=== PATIENT | female | born 1995 | race Caucasian/White ===

== ENCOUNTER 2018-01-31 23:28 | Emergency (ER) | payer MEDICAID, SELFPAY ==
[2018-01-31 23:29] VITALS: BP 140/96; PULSE 104; RESP 18; TEMP 36.8; O2SAT 100; BMI 41.6
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
[2018-02-01 00:38] VITALS: PULSE 80; RESP 18; O2SAT 99
[2018-02-01] MEDS: Acetaminophen 500 MG Tablet 1000 MG PO (00:38)
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
[2018-02-01] MEDS: HYDROcodone Bitartrate/Apap 5/325 Tablet PO (01:38)
[2018-02-01 01:39] VITALS: BP 109/71; PULSE 87; O2SAT 100
== END 2018-02-01 01:39 | disposition home or self-care (01) ==
PROVIDERS: Emergency Provider Emergency Medicine; Family Provider Family Medicine; PCP Family Medicine
DX: S16.1XXA Strain of muscle, fascia and tendon at neck level, initial encounter (principal); S39.012A Strain of muscle, fascia and tendon of lower back, initial encounter; S70.01XA Contusion of right hip, initial encounter; F17.290 Nicotine dependence, other tobacco product, uncomplicated; V43.52XA Car driver injured in collision with other type car in traffic accident, initial encounter; Y93.I9 Activity, other involving external motion; Y92.410 Unspecified street and highway as the place of occurrence of the external cause; Y99.8 Other external cause status
CPT/HCPCS: 72040; 72100; 72170; 73552; 99284

== ENCOUNTER → 2019-05-06 | Outpatient (CLI) | payer MEDICAID, SELFPAY ==
[2019-05-06 13:27] LABS: D-Dimer Quantitative (DVT/PE) < 0.27 FEU/ug/m (0.27-0.49)
== END | disposition home or self-care (01) ==
LOC: LABSPEC 12:58
PROVIDERS: PCP Family Medicine; Visit Provider Family Medicine
DX: R07.9 Chest pain, unspecified (principal)
CPT/HCPCS: 85379

== ENCOUNTER 2020-06-20 15:31 | Emergency (ER) | payer MEDICAID, SELFPAY ==
[2020-06-20 15:32] VITALS: BP 132/88; PULSE 92; RESP 18; TEMP 36.4; O2SAT 100; BMI 39.2
[2020-06-20 16:03] LABS: Mucous, Urine 0 SEEN /hpf (<or=2+); Red Blood Cells-Urine 0 SEEN /hpf (0-5)
[2020-06-20 16:16] LABS: Absolute Lymphocyte Count 2.15 X10^3/uL (0.83-4.51); Absolute Neutrophil Count 4.6 X10^3/uL (2.0-7.7); Basophil# 0.05 X10^3/uL; Basophil% 0.6 % (0-1); Eosinophil# 0.31 X10^3/uL; Hematocrit 37.7 % (37-47); Hemoglobin 12.7 g/dL (12.0-15.0); Lymphocyte # 2.15 X10^3/ul (4.0); Lymphocyte % 27.9 % (19-41); Mean Corp Hgb Conc 33.7 g/dL (32-36); Mean Corpuscular Hgb 27.8 pg (27.0-32.0); Mean Corpuscular Volume 82.5 fL (81-99); Mean Platelet Vol. 11.1 fl (6.2-12.0); Monocyte# 0.56 X10^3/uL; Monocyte% 7.3 % (0-10); NRBC Flagged by Analyzer 0 % (0-5); Neutrophil % 59.8 % (47-70); Platelet Count 235 K/mm3 (150-450); RBC Distribution Width CV 12.6 % (11.6-14.6); RBC Distribution Width SD 37.7 fl (35.1-43.9); Red Blood Count 4.57 M/mm3 (4.2-5.4); White Blood Count 7.7 K/mm3 (4.4-11.0)
[2020-06-20 16:30] LABS: Anion Gap 6 (5-15); BUN 10 mg/dL (7-18); BUN/Creat Ratio 17.8 RATIO (10-20); Calcium,Total 9.1 mg/dL (8.5-10.1); Chloride 103 mmol/L (98-107); Creatinine, Serum 0.56 mg/dL (0.55-1.02); EST Glomerular Filtration Rate 138 mL/min (>60); Est Glom Filt Rate - Afr Amer 167 mL/min (>60); Estimated Creatinine Clearance 125.93 ml/min; Glucose 95 mg/dL (74-106); Potassium 4.2 mmol/L (3.5-5.1); Sodium Level 136 mmol/L (136-145)
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
[2020-06-20] MEDS: Acetaminophen 500 MG Tablet 1000 MG PO (16:40)
[2020-06-20 16:41] LABS: Internal QC Validated? YES +Cl - CLEAR BKGD; Pregnancy, Serum, hCG Quali. POSITIVE Negative
[2020-06-20 16:53] LABS: Color, Urine Yellow (Yellow); Glucose, Dipstick Normal (Normal); Ketone-Dipstick Negative (Negative); Leukocyte Esterase-Dipstick 25 /ul (Negative); Nitrite-Dipstick Negative (Negative); Occult Blood-Urine Negative /ul (Negative); Protein-Dipstick Negative (Negative); Urine Bilirubin Dipstick Negative (Negative); Urine Clarity Clear (Clear); Urine Urobilinogen Normal (Normal); Urine pH 6.5 (5.0 - 8.0)
[2020-06-20 17:05] LABS: AST(SGOT) 19 U/L (15-37); Alanine Aminotransfer ALT/SGPT 20 U/L (13-56); Albumin, Serum 3.8 g/dL (3.2-5.0); Alkaline Phosphatase 64 U/L (45-117); Bilirubin, Direct 0.08 mg/dL (0.00-0.30); Globulin 3.6 g/dL (2.2-4.2); Protein, Total 7.4 g/dL (6.4-8.2)
[2020-06-20 17:17] LABS: Bacteria 1+ /hpf (None Seen); Squamous Epithelial Cells - UA 0-5 SEEN /hpf (5-10); White Blood Cells 0-5 SEEN /hpf (0-5)
[2020-06-20 18:43] VITALS: BP 131/67; PULSE 72; RESP 15; O2SAT 99
== END 2020-06-20 18:44 | disposition home or self-care (01) ==
PROVIDERS: Emergency Provider Emergency Medicine; PCP Family Medicine
DX: O20.0 Threatened abortion (principal); O26.891 Other specified pregnancy related conditions, first trimester; R10.2 Pelvic and perineal pain; Z3A.01 Less than 8 weeks gestation of pregnancy; Z87.891 Personal history of nicotine dependence
CPT/HCPCS: 76817; 80048; 80076; 81001; 84702; 84703; 85025; 86900; 86901; 87086; 99282; A4216

== ENCOUNTER 2023-05-14 11:21 | Emergency (ER) | payer MEDICAID, SELFPAY ==
[2023-05-14 11:22] VITALS: BP 128/86; PULSE 81; RESP 14; TEMP 36.4; O2SAT 97; BMI 38.6
--- NOTE | 2023-05-14 11:39 | EKG12_ITS ---
Test Reason : GENERAL Blood Pressure : / mmHG Vent. Rate : 075 BPM Atrial Rate : 075 BPM P-R Int : 168 ms QRS Dur : 094 ms QT Int : 400 ms P-R-T Axes : 046 036 016 degrees QTc Int : 446 ms Normal sinus rhythm Normal ECG Confirmed by DEBBI TEIXEIRA, WALDEMAR ([id number]), editorial writer FERNANDEZ CLAY ([id number]) on 05/18/2023 8:25:31 AM Referred By: Confirmed By:BEBA WERNER MD
--- NOTE | 2023-05-14 11:53 | RAD_ITS ---
STUDY: X-RAY CHEST REASON FOR EXAM: Female, 28 years old. Chest pain TECHNIQUE: Single AP portable view of the chest. COMPARISON: None. FINDINGS: EKG electrodes are seen. The lungs are clear and expanded. There is no demonstrated pleural abnormality. Normal size heart. Normal mediastinum and marcella. Normal visualized pulmonary arteries. Normal visualized aortic arch and descending thoracic aorta. Normal visualized thoracic spine. Normal visualized ribs, clavicles, and shoulders. There is no demonstrated abnormality of the visualized soft tissue structures of the upper abdomen. RAD/Chest 1 View (Portable) IMPRESSION: Normal x-ray examination of the chest. Electronically Signed: Arya Grissom MD at 12:10 EDT ,
[2023-05-14 11:57] LABS: Absolute Neutrophil Count 3.4 X10^3/uL (2.0-7.7); Basophil# 0.04 X10^3/uL; Basophil% 0.6 % (0-1); Eosinophil# 0.27 X10^3/uL; Eosinophils% 3.9 % (0-5); Hematocrit 37.4 % (37-47); Hemoglobin 12.8 g/dL (12.0-15.0); Lymphocyte % 37.7 % (19-41); Mean Corp Hgb Conc 34.2 g/dL (32-36); Mean Corpuscular Hgb 27.7 pg (27.0-32.0); Mean Platelet Vol. 11.5 fl (6.2-12.0); Monocyte# 0.55 X10^3/uL; NRBC Flagged by Analyzer 0 % (0-5); Neutrophil # 3.42 X10^3/uL (2.7-7.7); Neutrophil % 49.5 % (47-70); POSITIVE MORPHOLOGY YES; Platelet Count 234 K/mm3 (150-450); RBC Distribution Width CV 13.1 % (11.6-14.6); RBC Distribution Width SD 37.9 fl (35.1-43.9); Red Blood Count 4.62 M/mm3 (4.2-5.4); White Blood Count 6.9 K/mm3 (4.4-11.0)
[2023-05-14 11:58] LABS: Differential Indicated SCAN CRITERIA MET
--- NOTE | 2023-05-14 12:11 | EDS_ITS ---
HPI History of Present Illness Chief Complaint: Chest Pain Narrative Narrative: 8-year-old female presenting with chest pain. She states intermittent. She had a couple episodes where it felt like if there was something retrosternal. She had some shortness of breath as well. Patient reports she has a stomach flu last week. She states her whole family had it. She states he recovered from this. No fevers or chills. No nausea or vomiting. No diarrhea. Patient went to her primary care physician to be evaluated had EKG which was normal and she was sent to the ED because she apparently has heart disease that runs in her family. No DVT/PE risk factors. PE Risk Factors: Negative for Recent Travel/Surgery, Recent Immobilization, Prior DVT or PE, Cancer or OCP + Smoking + >/=35 PFSH PFSH Home Medications loratadine 10 mg tablet 10 mg PO DAILY 06/20/20 [History Last Taken Unknown] vit no.95-ferrous fumarate 28 mg-folic acid 800 mcg tablet 1 ea PO PAIGE LY #30 tabs 06/20/20 [Rx Last Taken Unknown] Allergy/AdvReac Type Severity Reaction Status Date / Time gluten Allergy Unknown Verified 05/14/23 11:23 Social History Smoking Status: Former smoker ROS ROS ED Review of Systems ROS Unobtainable: Denies due to encephalopathy Constitutional Constitutional ED: Denies chills or fever(s) Eyes Eyes: Denies none ENT ENT ED: Denies ear pain or rhinorrhea Cardiovascular Cardiovascular: Reports as per HPI Respiratory/Chest Respiratory/Chest: Reports dyspnea Gastrointestinal Gastrointestinal: Denies abdominal pain, nausea or vomiting Genitourinary Genitourinary ED: Denies dysuria or hematuria Musculoskeletal Musculoskeletal: Denies arthralgias Integumentary Denies abscess or Abrasions Neurologic Neurologic: Denies headache(s) or paresthesias Psychiatric Psychiatric: Denies anxiety or depression EXAM Physical Exam Const Vital Signs: 05/14/23 11:22 05/14/23 11:39 05/14/23 11:39 Temperature 97.6 F L Temperature Source Temporal Pulse Rate 81 Respiratory Rate 14 Respiratory Effort Normal Non-Labored Blood Pressure 128/86 H Blood Pressure Mean 100 Pulse Ox 97 Oxygen Delivery Method Room Air Room Air 05/14/23 13:21 Temperature Temperature Source Pulse Rate 73 Respiratory Rate 17 Respiratory Effort Blood Pressure 115/69 Blood Pressure Mean 84 Pulse Ox 95 Oxygen Delivery Method Room Air Positive well nourished General Appearance ED: NAD FRANKLYN Reports moist mucous membranes normocephalic and atraumatic Eyes PERRL and EOMs intact bilaterally Chest Wall inspection of chest normal and palpation of chest normal Resp normal respiratory effort and clear to auscultation bilaterally Auscultation: Negative for rales, rhonchi or wheezes Cardio regular rate and regular rhythm Extremity normal to inspection General Extremety ED: Yes pulses abnormal; Negative for edema General Extremity: pulses abnormal; Negative for edema Neuro oriented x3 and CN's II-XII intact bilaterally Motor Exam: strength 5/5 throughout Psych mental status grossly normal Skin no rashes or lesions noted and no wounds Heart Score History: Slightly/Non-Suspicious ECG: Normal Age: </= 45 years Risk Factors: 1 or 2 Risk Factors Troponin: </= Normal Limit Score: 1 MDM MDM MDM Narrative Medical decision making narrative: Patient presenting with intermittent chest pains. HEART score of 1. This is for family history. Patient has no other medical problems. Differential includes acute coronary syndrome, pneumonia, viral syndrome, pneumothorax, dehydration, electrolyte abnormalities. CBC obtained to assess white blood cell count, hemoglobin and platelets, BMP to assess renal function, electrolytes. D- dimer to assess for PE. High-sensitivity troponin will be obtained as well as EKG to rule out ischemia. Chest x-ray to rule out pneumonia or pneumothorax. Patient declines analgesia. CBC and BMP are unremarkable with exception of a potassium of 3.2. Renal function is normal. Chest x-ray my interpretation shows no acute process. Radiologist interprets this and agrees. EKG is normal sinus rhythm with a ventricular rate of 82 bpm without sign of ischemic change or ectopy on my interpretation. Troponin is 3 and delta troponin is 4 therefore there is no significant will change. I believe the patient is safe for discharge at this time. Impression: 1. Chest pain Lab Data Attestation: I reviewed the patient's lab results. Labs: Laboratory Results - last 24 hr 05/14/23 05/14/23 11:49 14:00 WBC 6.9 RBC 4.62 Hgb 12.8 Hct 37.4 MCV 81.0 MCH 27.7 MCHC 34.2 RDW Std Deviation 37.9 RDW Coeff of Shan 13.1 Plt Count 234 MPV 11.5 Immature Gran % (Auto) 0.300 Neut % (Auto) 49.5 Lymph % (Auto) 37.7 [place] % (Auto) 8.0 Eos % (Auto) 3.9 Baso % (Auto) 0.6 Absolute Neuts (auto) 3.4 Absolute Lymphs (auto) 2.60 Nucleated RBC % 0 Reactive Lymphocytes 1+ D-Dimer Quant (PE/DVT) 0.45 Sodium 141 Potassium 3.2 L Chloride 110 H Carbon Dioxide 27.0 Anion Gap 4 L BUN 7 Creatinine 0.71 Estim Creat Clear Calc 96.71 Est GFR (MDRD) Af Amer 126 Est GFR (MDRD) Non-Af 104 BUN/Creatinine Ratio 9.9 L Glucose 108 H Calcium 8.7 Troponin I High Sens 3 4 Radiography Diagnostic Testing: Clinical Impression(s) from Imaging Studies Chest X-Ray 05/14/23 11:53 IMPRESSION: Normal x-ray examination of the chest. Electronically Signed: Arya Grissom MD at 12:10 EDT , Discharge Plan Triage Chief Complaint: Chest Pain ED Provider: Kiran Lobo Dx/Rx/DC Orders Instructions: ED Chest Pain, Noncardiac, ED Dyspnea Prescriptions: No Action loratadine 10 MG tablet 10 mg PO DAILY PNV cmb#95-ferrous fumarate-FA 1 EACH tablet 1 ea PO DAILY Qty: 30 0RF Primary Care Provider: Obie Snow Referrals: Obie Snow MD [Primary Care Provider] - Disposition Disposition: Home, Self Care Discharge Date/Time: 05/14/23 14:43
[2023-05-14 12:15] LABS: Anion Gap 4 (5-15); BUN 7 mg/dL (7-18); BUN/Creat Ratio 9.9 RATIO (10-20); Calcium,Total 8.7 mg/dL (8.5-10.1); Chloride 110 mmol/L (98-107); Creatinine, Serum 0.71 mg/dL (0.55-1.02); EST Glomerular Filtration Rate 104 mL/min (>60); Est Glom Filt Rate - Afr Amer 126 mL/min (>60); Estimated Creatinine Clearance 96.71 ml/min; Glucose 108 mg/dL (74-106); Potassium 3.2 mmol/L (3.5-5.1); Sodium Level 141 mmol/L (136-145); Troponin-I HS (w/2H Reflex) 3 pg/mL (3.0-54.0)
[2023-05-14] MEDS: Aspirin 81 MG TAB.CHEW 324 MG PO (12:19)
[2023-05-14 12:22] LABS: Reactive Lymphocyte 1+
[2023-05-14 12:51] LABS: D-Dimer Quantitative (DVT/PE) 0.45 FEU/ug/m (0.27-0.49)
[2023-05-14 13:21] VITALS: BP 115/69; PULSE 73; RESP 17; O2SAT 95
[2023-05-14 13:53] LABS: Reflex Troponin-HS? (from REC) Y
[2023-05-14 14:25] LABS: Troponin-I HS 4 pg/mL (3.0-54.0)
== END 2023-05-14 14:43 | disposition home or self-care (01) ==
PROVIDERS: Emergency Provider Student in an Organized Health Care Education/Training Program; PCP Family Medicine; Visit Provider Student in an Organized Health Care Education/Training Program
DX: R07.9 Chest pain, unspecified (principal); Z87.891 Personal history of nicotine dependence; Z82.49 Family history of ischemic heart disease and other diseases of the circulatory system; R06.02 Shortness of breath
CPT/HCPCS: 71045; 80048; 84484; 85025; 85379; 93005; 99285; A4216

== ENCOUNTER 2024-04-20 11:00 | Outpatient (RCR) | payer MEDICAID, SELFPAY ==
--- NOTE | 2024-03-23 09:32 | HP.PTEVAL_ITS ---
Patient's Visit Information Visit Information Visit Information: EDNA WIGGINS is a 28 year old F referred to Physical Therapy by BINA Sheffield with a diagnosis of CERVICAL STRAIN. Date of Evaluation: 03/23/24 Physical Therapist: Salvatore Tidwell, PT, Cert MDT, OCS Visit Plan Frequency: 2x /Week Duration: 4 Weeks Plan: PT INTERVENTION POSTURAL EX'S ,[place] EX'S ,STRENGTHENING AND MANUAL THERAPY/SRM CERVICAL TRACTION Subjective Subjective: This 28 y/o female presents to physical therapy with cervical strain. Patient has neck pain for many years. Recently has had symptoms spasms in arm and radiates in cervical on right. Seen DR blanco ENG to r/o seizures . Plan to see Neurologist April 29. muscle relaxers. Aggravating factors not specific. Alleviating factors rest. Denies paresthesia/tingling . Patient c/o frontal and orbital SEE.Denies dizziness/tinnitus/nausea. Patient has difficulty sleeping. Patient has no h/o trauma or accidents. Patient condition affects QOL and function. SOCIAL: single 5 CHILDREN VOCATION: HOME Pain Bilateral Neck: Pain Intensity (Out of 10): 3 Pain Intensity Range: 10 Objective Objective: POSTURE: rounded shoulders head forward PALAPTION: tender UT/levator NEURO: denies paresthesia/tingling ,reflexes C5-6-7 2/3 AROM: shoulder flexion /abduction WNL ,ER 90 degrees ,IR T11 MMT: grossly 4/5 except shoulders 4-/5 CERVICAL ROM: flexion WFL, rotation min loss ,lateral flexion min loss ,extension min loss Special Tests C/S Radiculapathy - Left Upper limb tension test: Negative C/S Radiculapathy - Right Upper limb tension test: Negative C/S Radiculapathy - Left Spurlings: Negative C/S Radiculapathy - Right Spurlings: Negative C/S Radiculapathy - Left Cervical distraction: Negative C/S Radiculapathy - Right Cervical distraction: Negative C/S Radiculapathy - Left Relief test: Negative C/S Radiculapathy - Right Relief test: Negative C/S Radiculapathy - Valsalva: Negative Sharp Danielle: Negative Vertebral Artery Test: Negative Alar Ligament Test: Negative Cervical Sitting: Protrusion - Mechanical Response: No effect Cervical Sitting: Protrusion - Symptoms During Testing: Increases Cervical Sitting: Protrusion - Symptoms After Testing: No worse Cervical Sitting: Retraction - Mechanical Response: No effect Cervical Sitting: Retraction - Symptoms During Testing: Decreases Cervical Sitting: Retraction - Symptoms After Testing: No better Cervical Sitting: Retraction-Extension - Mechanical Response: No effect Cerv Sitting: Retraction-Extension - Symptoms During Testing: Decreases Cerv Sitting: Retraction-Extension - Symptoms After Testing: No better Cervical Sitting: Sidebend Right - Mechanical Response: No effect Cervical Sitting: Sidebend Right - Symptoms During Testing: No effect Cervical Sitting: Sidebend Right - Symptoms After Testing: No effect Cervical Sitting: Sidebend Left - Mechanical Response: No effect Cervical Sitting: Sidebend Left - Symptoms During Testing: No effect Cervical Sitting: Sidebend Left - Symptoms After Testing: No effect Cervical Sitting: Rotation Right - Mechanical Response: No effect Cervical Sitting: Rotation Right - Symptoms During Testing: No effect Cervical Sitting: Rotation Right - Symptoms After Testing: No effect Cervical Sitting: Rotation Left - Mechanical Response: No effect Cervical Sitting: Rotation Left - Symptoms During Testing: No effect Cervical Sitting: Rotation Left - Symptoms After Testing: No effect Cervical Sitting: Flexion - Mechanical Response: No effect Cervical Sitting: Flexion - Symptoms During Testing: No effect Cervical Sitting: Flexion - Symptoms After Testing: No effect Balance/Special Test Scores Oswestry Neck Score: 30 Goals Goal 1:: Patient to be I with HEP for cervical spine Goal Time Frame: 4-6 Weeks Goal 2:: Patient to demonstrate 50% improvement with less pain and improved function Goal Time Frame: 4-6 Weeks Goal 3:: Patient to improve cervical ROM for function of recovery for driving without pain Goal Time Frame: 4-6 Weeks Goal 4:: Patient to improve neck oswestry score by 5 points to improve QOL and function Goal Time Frame: 4-6 Weeks Rehabilitation Potential Physical Therapy Diagnosis: This patient has cervical pain with dysfunction with pain with motion testing and positioning thus benefit from skilled PT Rehabilitation Potential: Good Anticipated Interventions Patient/Client Instruction: Educate patient on: Condition and Plan of Care For the Purpose of:: To decrease pain, To increase ROM, To improve muscle pe rformance and motor function, To improve ability to perform ADL's, To increase tolerance to activity/condition/position, To improve ability of physical actions for home/community/work/leisure, To improve health of tissue, To decrease soft tissue restriction, To increase flexibility/ROM and To prevent re-injury Therapeutic Exercise to Include: Strength training, Flexibilty training and Dynamic Lumbar Stabilization For the Purpose of:: To decrease pain, To increase ROM, To improve muscle performance and motor function, To improve ability to perform ADL's, To increase tolerance to activity/condition/position, To improve ability of physical actions for home/community/work/leisure, To improve health of tissue, To decrease soft tissue restriction, To increase flexibility/ROM and To prevent re-injury Manual Therapy Techniques to Include: Mobilization and Soft tissue mobilization For the Purpose of:: To decrease pain, To increase ROM, To improve nutrient delivery to tissue, To increase oxygenation perfusion, To improve health of tissue and To decrease soft tissue restriction Text: Thank you for the opportunity to evaluate your patient. For Medicare and Medicare HMO plans, please review the plan of care and approve it. It will need to be FAXED BACK to us at [phone] for Medicare purposes. For Medicare only, by signing this I certify the plan of care. Please let me know if there are questions or concerns regarding this plan of care. Physician Signature: Date:
--- NOTE | 2024-04-20 11:31 | HP.PTDCSUM_ITS ---
Discharge Summary D/C summary: It has been my pleasure to treat EDNA WIGGINS referred by Annette Campbell, [employer], with the diagnosis of CERVICAL STRAIN for a total of 7 visit(s). Discharge Date: 04/20/24 Please see the following information for a summary of their discharge status. Subjective Subjective: Doing better Pain Bilateral Neck: Pain Intensity (Out of 10): 0 Overall Improvement % Improvement: 50 Objective Objective/Function: POSTURE: rounded shoulders head forward PALAPTION: tender UT/levator NEURO: denies paresthesia/tingling ,reflexes C5-6-7 2/3 AROM: shoulder flexion /abduction WNL ,ER 90 degrees ,IR T11 MMT: grossly 4/5 except shoulders 4-/5 CERVICAL ROM: flexion WFL, rotation min loss ,lateral flexion min loss ,extension min loss Goals Goal 1:: Patient to be I with HEP for cervical spine Goal Progress: Goal Met Goal 2:: Patient to demonstrate 50% improvement with less pain and improved function Goal Progress: Goal Met Goal 3:: Patient to improve cervical ROM for function of recovery for driving without pain Goal Progress: Goal Met Goal 4:: Patient to improve neck oswestry score by 5 points to improve QOL and function Goal Progress: Goal Met Goal Progress: Goal Met Plan Plan: D/C D/C Information Discharge Comments: HEP d/c sentence: If there are questions or concerns regarding this patient's physical therapy, please feel free to call me at [phone]. Thank you for the referral of this patient. Sincerely, Salvatore Tidwell, PT, Cert MDT, OCS Balance/Gait/Functional tests Balance/Special Test Scores Oswestry Neck Score: 0 Improvement % Improvement: 50
== END 2024-04-20 19:00 | disposition home or self-care (01) ==
LOC: PT 11:00
PROVIDERS: PCP Family Medicine; Referring Provider Clinical Nurse Specialist Adult Health; Visit Provider Clinical Nurse Specialist Adult Health
DX: G89.4 Chronic pain syndrome (principal)
CPT/HCPCS: 97110; 97140; 97161; 97530

== ENCOUNTER 2024-05-03 15:19 | Emergency (ER) | payer MEDICAID, SELFPAY ==
[2024-05-03 15:20] VITALS: BP 141/97; PULSE 88; RESP 16; TEMP 36.2; O2SAT 98; BMI 43.4
--- NOTE | 2024-05-03 15:32 | EDS_ITS ---
HPI History of Present Illness Chief Complaint: Weakness Informant: patient Onset/Context/Timing Onset: Weeks (2) Context: Gradual Onset Timing: Continuous Quality: Weakness Location: Right hip and thigh Worsened by: Nothing Relieved by: Nothing Narrative Narrative: Patient presents with weakness in her right thigh and leg that has been getting progressively worse over the past 2 weeks. Patient states that her leg wants to give out on her when she is walking. Patient states it has been constant for the past 2 weeks. Patient states she has had intermittent numbness and tingling in her right hand over the past 2 weeks as well. Patient denies any weakness of her hand. Patient states nothing makes her symptoms better nothing makes them worse. Patient states she has an appoint with the neurologist tomorrow because she had an abnormal EEG. Patient states that she called her primary care physician's office and the nurses there told her to come to the emergency department. [facility] Medical History (Updated 05/03/24 @ 17:[address] Titi Delgado DO) Pancreatitis Celiac disease Home Medications ?Medication ?Instructions ?Recorded ?Last Taken ?Type loratadine 10 mg tablet 10 mg PO DAILY 06/20/20 05/03/24 History albuterol sulfate 90 mcg/actuation 2 puff inhalation Q6H PRN PRN 05/03/24 Unknown History aerosol inhaler shortness of breath or wheezing bupropion HCl 300 mg 24 hr tablet, 300 mg PO DAILY 05/03/24 05/03/24 History extended release cetirizine 10 mg tablet 10 mg PO DAILY 05/03/24 05/03/24 History fluticasone propionate 50 2 spray intranasal DAILY 05/03/24 05/03/24 History mcg/actuation nasal spray,suspension methocarbamol 750 mg tablet 750 mg PO TID 05/03/24 05/03/24 History Allergy/AdvReac Type Severity Reaction Status Date / Time gluten Allergy Unknown Verified 05/03/24 16:00 Surgical History Hx of cholecystectomy Social History Smoking Status: Former smoker ROS ROS ED Constitutional Constitutional ED: Denies chills or fever(s) Eyes Eyes: Denies blurry vision or change in vision ENT ENT ED: Denies rhinorrhea or sore throat Cardiovascular Cardiovascular: Denies chest pain or palpitations Respiratory/Chest Respiratory/Chest: Denies cough or dyspnea Gastrointestinal Gastrointestinal: Denies nausea or vomiting Genitourinary Genitourinary ED: Denies dysuria or hematuria Musculoskeletal Musculoskeletal: Denies back pain or neck pain Integumentary Denies abscess or rash Neurologic Neurologic: Reports headache(s), paresthesias LUE (Left hand) and weakness Allergic/Immunologic Allergic/Immunologic ED: Denies mouth swelling or urticaria EXAM Physical Exam Const Vital Signs: 05/03/24 15:20 05/03/24 16:00 Temperature 97.2 F L Temperature Source Temporal Pulse Rate 88 Respiratory Rate 16 Respiratory Effort Normal Non-Labored Respiratory Pattern Normal Blood Pressure 141/97 H Blood Pressure Mean 111 Pulse Ox 98 Oxygen Delivery Method Room Air Positive well nourished and well developed General Appearance ED: well developed and NAD HEENT Reports moist mucous membranes Neck supple and no JVD Neuro oriented x3 and CN's II-XII intact bilaterally Neuro Narrative: Deep tendon reflexes are 2/4 bilaterally in the upper and lower extremities. There is slight decrease sensation to light touch over the right hand. Sensorium / Orientation: alert Motor Exam: strength 5/5 throughout MDM MDM MDM Narrative Medical decision making narrative: Differential diagnosis includes stroke, electrolyte abnormality, peripheral neuropathy, lumbar radiculopathy, and paresthesias. CT scan of the brain will be obtained to assess for stroke. CBC will be obtained to assess for leukocytosis and anemia. Basic metabolic profile will be obtained to assess for electrolyte abnormality and renal function. Lab Data Attestation: I reviewed the patient's lab results. Lab results narrative: CBC was reviewed and was within normal limits. Basic metabolic profile was reviewed and was within normal limits. Labs: Laboratory Results - last 24 hr 05/03/24 16:10 WBC 5.4 RBC 4.56 Hgb 12.5 Hct 37.5 MCV 82.2 MCH 27.4 MCHC 33.3 RDW Std Deviation 39.6 RDW Coeff of Shan 13.2 Plt Count 223 MPV 10.6 Immature Gran % (Auto) 0.400 Neut % (Auto) 40.2 L Lymph % (Auto) 38.5 [place] % (Auto) 9.4 Eos % (Auto) 10.0 H Baso % (Auto) 1.5 H Absolute Neuts (auto) 2.2 Absolute Lymphs (auto) 2.08 Nucleated RBC % 0 Sodium 139 Potassium 3.7 Chloride 109 H Carbon Dioxide 26.0 Anion Gap 4 L BUN 9 Creatinine 0.73 Estim Creat Clear Calc 135.17 Est GFR (MDRD) Af Amer 120 Est GFR (MDRD) Non-Af 100 BUN/Creatinine Ratio 12.3 Glucose 97 Calcium 8.8 Radiography Diagnostic Testing: Clinical Impression(s) from Imaging Studies Brain CT 05/03/24 16:20 IMPRESSION: Normal CT brain without intravenous contrast. Electronically Signed: Estevan Lee MD at 16:36 EDT , CT scan of the brain was obtained. There is no acute intracranial abnormality. This was interpreted by the radiologist and was also independently reviewed by myself. Treatment and Re-Evaluation :: Patient was advised of her findings. Patient was feeling better on reevaluation. Patient was instructed to follow-up with her neurology appointment tomorrow for further evaluation. Patient understood and was agreeable with the plan. All questions were answered. Discharge Plan Triage Chief Complaint: Weakness ED Provider: Titi Delgado Dx/Rx/DC Orders Clinical Impression: Weakness of right lower extremity, Paresthesias in right hand Instructions: ED Weakness (Uncertain Cause), ED Paraesthesias Prescriptions: No Action loratadine 10 MG tablet 10 mg PO DAILY albuterol sulfate 90 mcg/actuation HFA aerosol inhaler 2 puff INHALATION Q6H PRN PRN (Reason: shortness of breath or wheezing) cetirizine 10 mg tablet 10 mg PO DAILY methocarbamol 750 mg tablet 750 mg PO TID fluticasone propionate 50 mcg/actuation spray,suspension 2 spray INTRANASAL DAILY bupropion HCl 300 mg tablet extended release 24 hr 300 mg PO DAILY Primary Care Provider: Obie Snow Referrals: Obie Snow MD [Primary Care Provider] - 5-7 Days Activity Restrictions/Additional Instructions: Follow-up with your neurology appointment tomorrow as scheduled. Print Language: Latvian Disposition Disposition: Home, Self Care
--- NOTE | 2024-05-03 16:20 | CT_ITS ---
EXAM: CT HEAD WITHOUT INTRAVENOUS CONTRAST CLINICAL INDICATION: Weakness TECHNIQUE: Multiple axial images were obtained of the head without intravenous contrast. This CT exam was performed using one or more of the following dose reduction techniques: automated exposure control, adjustment of the mA and/or kV according to patient size, and/or use of iterative reconstruction technique. COMPARISON: No relevant prior studies available. FINDINGS: BRAIN AND EXTRA-AXIAL SPACES: Normal. Normal brain attenuation. No intra- or extra-axial hemorrhage. No acute infarct. No intracranial mass or mass effect. There is preservation of the piper/white matter interface. Posterior fossa structures are unremarkable. Ventricles are appropriate for age. No hydrocephalus. Basal cisterns are patent. BONES/JOINTS: Normal calvarium. SINUSES: No acute sinusitis. MASTOID AIR CELLS: Normal. Clear. CT/Brain/Head without Contrast IMPRESSION: Normal CT brain without intravenous contrast. Electronically Signed: Estevan Lee MD at 16:36 EDT ,
[2024-05-03 16:21] LABS: Absolute Lymphocyte Count 2.08 X10^3/uL (0.83-4.51); Absolute Neutrophil Count 2.2 X10^3/uL (2.0-7.7); Basophil# 0.08 X10^3/uL; Basophil% 1.5 % (0-1); Eosinophil# 0.54 X10^3/uL; Hematocrit 37.5 % (37-47); Hemoglobin 12.5 g/dL (12.0-15.0); Lymphocyte # 2.08 X10^3/ul (0.83-4.51); Lymphocyte % 38.5 % (19-41); Mean Corp Hgb Conc 33.3 g/dL (32-36); Mean Corpuscular Hgb 27.4 pg (27.0-32.0); Mean Corpuscular Volume 82.2 fL (81-99); Mean Platelet Vol. 10.6 fl (6.2-12.0); Monocyte# 0.51 X10^3/uL; Monocyte% 9.4 % (0-10); NRBC Flagged by Analyzer 0 % (0-5); Neutrophil # 2.17 X10^3/uL (2.7-7.7); Neutrophil % 40.2 % (47-70); Platelet Count 223 K/mm3 (150-450); RBC Distribution Width CV 13.2 % (11.6-14.6); RBC Distribution Width SD 39.6 fl (35.1-43.9); Red Blood Count 4.56 M/mm3 (4.2-5.4); White Blood Count 5.4 K/mm3 (4.4-11.0)
[2024-05-03 16:34] LABS: Anion Gap 4 (5-15); BUN 9 mg/dL (7-18); BUN/Creat Ratio 12.3 RATIO (10-20); Calcium,Total 8.8 mg/dL (8.5-10.1); Chloride 109 mmol/L (98-107); Creatinine, Serum 0.73 mg/dL (0.55-1.02); EST Glomerular Filtration Rate 100 mL/min (>60); Est Glom Filt Rate - Afr Amer 120 mL/min (>60); Estimated Creatinine Clearance 135.17 ml/min; Glucose 97 mg/dL (74-106); Potassium 3.7 mmol/L (3.5-5.1); Sodium Level 139 mmol/L (136-145)
[2024-05-03 17:14] VITALS: BP 140/98; PULSE 78; RESP 18; TEMP 36.6; O2SAT 99
== END 2024-05-03 17:17 | disposition home or self-care (01) ==
PROVIDERS: Emergency Provider Emergency Medicine; PCP Family Medicine; Visit Provider Emergency Medicine
DX: R29.898 Other symptoms and signs involving the musculoskeletal system (principal); R53.1 Weakness; R20.2 Paresthesia of skin; Z87.891 Personal history of nicotine dependence; R94.01 Abnormal electroencephalogram [EEG]; R20.0 Anesthesia of skin; Z79.899 Other long term (current) drug therapy; R51.9 Headache, unspecified
CPT/HCPCS: 70450; 80048; 85025; 99284; A4216

== ENCOUNTER 2024-05-18 11:00 | Outpatient (RCR) | payer MEDICAID, SELFPAY | END 2024-05-18 19:00 | disposition home or self-care (01) | LOC: PT 11:00 | PROVIDERS: PCP Family Medicine; Referring Provider Clinical Nurse Specialist Adult Health; Visit Provider Clinical Nurse Specialist Adult Health | DX: G89.4 Chronic pain syndrome (principal); G37.9 Demyelinating disease of central nervous system, unspecified | CPT/HCPCS: 97110; 97161 ==

== ENCOUNTER 2024-11-18 15:30 | Outpatient (RCR) | payer MEDICAID, SELFPAY ==
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
--- NOTE | 2024-10-18 11:49 | HP.PTEVAL_ITS ---
Patient's Visit Information Visit Information Visit Information: EDNA WIGGINS is a 29 year old F referred to Physical Therapy by NOEL WRIGHT with a diagnosis of R chronic LBP. Date of Evaluation: 10/18/24 Physical Therapist: Titi Morgan, DPT, OCS, CSCS Visit Plan Frequency: 2x /Week Duration: 4-6 Weeks Plan: 2x/week for 4-6 weeks... IE HEP: SKC, pelvic tilt, trunk rotation 10x 2x/day and NS in standing with HO treat with psoas rollout and stretch, core NS stabs, hip stabs and progressing to HEP, emphasis should be on neutral spine position. TENS if needed.Ice Subjective Subjective: Thinks she might be having focal seizures and they want to test. Seeing OT for weakness in the UE. Chronic R sided LBP. Reaching out front can be painful in back r sided. LBP present for long time, worse since gained weight 4 yrs. [facility] office sent to specialist spine Dr. Lino and then will f/u for MRI if no better. pain 5/10 /10 worse with reaching. Wakes up in pain at night and can roll and reposition. Not employed. Spends day with 4 children 10, 9,5, 4. Picks up 4 yo sometimes and it hurts. Housework is getting done but slow and has to be careful and needs rest as it will hurt. Basic ADLs all getting done. Regualr ex: No. Hobbies: miniatures, not right now due to time. Pain R LBP: Pain Intensity (Out of 10): 5 Pain Intensity Range: 4 and 10 Comment: reaching and twisting worse. Objective Objective: postural lumbar lordosis is accentuated. kyphosis in t/s. Walks I and transfer chair and bed I. steps recirpocal with one rail. Lumbar ext painful and not limited, flexion mod limited, not painful, SB are min limited and painful R. psoas and quad tight B. reflexes 2/3 patella and achilles Sensation WNL to gross light touch. strength hips 3, knee flex/ext 4, ankles 4, core 3+ flex and ext. - SLR, - slump test. Balance/Special Test Scores Oswestry Low Back Score: 18 Goals Goal 1:: Lumbar ROM without pain Goal Time Frame: 4-6 Weeks Goal 2:: I appropriate HEP to limit future problems Goal Time Frame: 4-6 Weeks Goal 3:: sleep without interuption from pain Goal Time Frame: 4-6 Weeks Goal 4:: oswestry score 6 or less Goal Time Frame: 4-6 Weeks Rehabilitation Potential Physical Therapy Diagnosis: ROM deficits and pain LB limiting comfortable funciton Rehabilitation Potential: Fair Anticipated Interventions Patient/Client Instruction: Educate patient on: Condition and Plan of Care For the Purpose of:: To decrease pain, To increase ROM, To improve nutrient delivery to tissue, To improve muscle performance and motor function and To increase tolerance to activity/condition/position Therapeutic Exercise to Include: Strength training, Postural training, Fle xibilty training, Passive ROM and Active ROM For the Purpose of:: To decrease pain, To increase ROM, To improve nutrient delivery to tissue and To increase tolerance to activity/condition/position Manual Therapy Techniques to Include: Mobilization, Passive ROM and Soft tissue mobilization For the Purpose of:: To decrease pain, To increase ROM and To increase tolerance to activity/condition/position TENS: Yes Cryotherapy (ice pack, ice massage): Yes For the Purpose of:: To decrease pain Text: Thank you for the opportunity to evaluate your patient. For Medicare and Medicare HMO plans, please review the plan of care and approve it. It will need to be FAXED BACK to us at [phone] for Medicare purposes. For Medicare only, by signing this I certify the plan of care. Please let me know if there are questions or concerns regarding this plan of care. Physician Signature: Date:
--- NOTE | 2025-01-10 12:51 | HP.PT.NRP ---
Patient Information Patient Information: EDNA WIGGINS was seen in my office for initial evaluation on 10/18/24. The following Plan of Care was established for this patient: POC Established Initial Frequency: 2x /Week Initial Duration: 4-6 Weeks Anticipated Interventions Patient/Client Instruction: Educate patient on: Condition and Plan of Care For the Purpose of:: To decrease pain, To increase ROM, To improve nutrient delivery to tissue, To improve muscle performance and motor function and To increase tolerance to activity/condition/position Therapeutic Exercise to Include: Strength training, Postural training, Flexibilty training, Passive ROM and Active ROM For the Purpose of:: To decrease pain, To increase ROM, To improve nutrient delivery to tissue and To increase tolerance to activity/condition/position Manual Therapy Techniques to Include: Mobilization, Passive ROM and Soft tissue mobilization For the Purpose of:: To decrease pain, To increase ROM and To increase tolerance to activity/condition/position TENS: Yes Cryotherapy (ice pack, ice massage): Yes For the Purpose of:: To decrease pain Last Seen Last Seen: This patient was last seen in our office 11/18/24. Pertinent comments regarding their Physical therapy will appear below: Pt seen 5 visits of POC but did not schedule or attend any further visits. At this point, it has been over 6 weeks and I will discontinue due to nonattendance. At this point I will be discontinuing this patient from physical therapy. I would be happy to see this patient again in the future if found appropriate by the physician. Thank you! Titi Morgan, DPT, OCS, CSCS Balance/Gait/Functional tests Balance/Special Test Scores Oswestry Low Back Score: 18
== END 2024-11-18 19:00 | disposition home or self-care (01) ==
LOC: PT 15:30
PROVIDERS: PCP Family Medicine
DX: G37.9 Demyelinating disease of central nervous system, unspecified (principal); M54.41 Lumbago with sciatica, right side; G89.29 Other chronic pain
CPT/HCPCS: 97110; 97161; 97165; 97530

== ENCOUNTER → 2025-09-14 | Outpatient (CLI) | payer MEDICAID, SELFPAY ==
[2025-09-18 04:06] LABS: Chlamydia By Nucleic Acid AMP Negative (Negative); Gonococcus By Nucleic Acid AMP Negative (Negative)
== END | disposition home or self-care (01) ==
LOC: LABSPEC 15:22
PROVIDERS: PCP Family Medicine; Referring Provider Student in an Organized Health Care Education/Training Program; Visit Provider Student in an Organized Health Care Education/Training Program
DX: O09.90 Supervision of high risk pregnancy, unspecified, unspecified trimester (principal); Z3A.00 Weeks of gestation of pregnancy not specified
CPT/HCPCS: 87086; 87491; 87591

== ENCOUNTER → 2025-10-03 | Outpatient (CLI) | payer MEDICAID, SELFPAY ==
[2025-10-03 15:35] LABS: Hematocrit 36.3 % (37-47); Hemoglobin 12.3 g/dL (12.0-15.0); Immature Granulocytes Count 0.050 X10^3/uL (0.0-0.0); Mean Corp Hgb Conc 33.9 g/dL (32-36); Mean Corpuscular Volume 83.4 fL (81-99); Mean Platelet Vol. 11.5 fl (6.2-12.0); NRBC Flagged by Analyzer 0 % (0-5); Platelet Count 279 K/mm3 (150-450); RBC Distribution Width CV 12.6 % (11.6-14.6); RBC Distribution Width SD 38.0 fl (35.1-43.9); Red Blood Count 4.35 M/mm3 (4.2-5.4); White Blood Count 8.4 K/mm3 (4.4-11.0)
[2025-10-03 16:13] LABS: HIV Nonreactive (Nonreactive); Hepatitis B Surface Antigen Nonreactive (Nonreactive); Hepatitis C Antibody Nonreactive (Nonreactive); Syphilis Antibodies Nonreactive (Nonreactive)
== END | disposition home or self-care (01) ==
PROVIDERS: Student in an Organized Health Care Education/Training Program; PCP Family Medicine; Visit Provider Obstetrics & Gynecology
DX: O99.210 Obesity complicating pregnancy, unspecified trimester (principal); Z3A.00 Weeks of gestation of pregnancy not specified
CPT/HCPCS: 36415; 83036; 85025; 86703; 86762; 86780; 86803; 86850; 86900; 86901; 87340